=== PATIENT | male | born 1970 | race Caucasian/White ===

== ENCOUNTER 2020-05-03 07:14 | Outpatient (CLI) | payer OTHER, SELFPAY ==
[2020-05-05 16:11] LABS: Basophils Absolute Auto 0.04 K/mm3 (0.00-0.10); Basophils Percent Auto 0.5 % (0.0-1.0); Eosinophils Percent Auto 2.7 % (1.0-6.0); Hematocrit 42.9 % (40.0-54.0); Hemoglobin 13.9 g/dL (14.0-18.0); Immature Granulocyte Absolute 0.02 K/mm3 (0.00-0.00); Immature Granulocyte Percent A 0.3 % (0.0-0.0); Lymphocytes Absolute Auto 1.99 K/mm3 (1.10-4.50); Lymphocytes Percent Auto 27.2 % (18.0-42.0); Mean Corpuscular HGB Conc 32.4 g/dL (32.0-36.0); Mean Corpuscular Volume 95.5 fL (78.0-102.0); Mean Platelet Volume 12.7 fl (8.7-11.0); Monocytes Absolute Auto 0.66 K/mm3 (0.10-0.90); Neutrophils Absolute Auto 4.4 K/mm3 (1.7-7.2); Neutrophils Percent Auto 60.3 % (50.0-70.0); Platelet Count Result 233 K/mm3 (150-420); Red Blood Count 4.49 M/mm3 (4.70-6.10); Red Cell Distribution Width 12.6 % (11.6-14.4); White Blood Count 7.3 K/mm3 (4.8-10.8)
[2020-05-05 16:29] LABS: Alanine Aminotransferase 32 U/L (16-63); Albumin Level 3.8 g/dL (3.4-5.0); Alkaline Phosphatase 63 U/L (46-116); Anion Gap 11.7 mmol/L (7-16); Aspartate Amino Transferase 28 U/L (15-37); Bilirubin,Total 0.4 mg/dL (0.00-1.00); Blood Urea Nitrogen 18 mg/dL (7-18); Calcium 8.4 mg/dL (8.5-10.1); Carbon Dioxide 28 mmol/L (21-32); Chloride 104 mmol/L (98-108); Cholesterol 223 mg/dL (0-200); Estimated Glomerular Filt Rate > 60; Glucose 92 mg/dL (70-99); HDL Direct 42 mg/dL (40-60); LDL Cholesterol Calculated 154 mg/dL (<130); Osmolality Calculated 291 mOsm/kg (285-295); Potassium 3.7 mmol/L (3.5-5.1); Sodium 140 mmol/L (136-145); Thyroid Stimulating Hormone 1.15 uIU/mL (0.36-3.74); Total Protein 6.9 g/dL (6.4-8.2); Triglycerides 136 mg/dL (0-150)
== END 2020-05-03 07:15 | disposition home or self-care (01) ==
LOC: CHSLAB 07:17
PROVIDERS: PCP Nurse Practitioner Family; Visit Provider Nurse Practitioner Family
DX: E11.9 Type 2 diabetes mellitus without complications (principal)
CPT/HCPCS: 36415; 80053; 80061; 83036; 84443; 85025

== ENCOUNTER 2020-07-28 11:11 | Outpatient (CLI) | payer OTHER, SELFPAY ==
[2020-07-28 12:39] LABS: Thyroid Stimulating Hormone Reflex 2.61 u/IU/mL (0.36-3.74)
== END 2020-07-28 11:12 | disposition home or self-care (01) ==
PROVIDERS: PCP Family Medicine; Visit Provider Family Medicine
DX: R11.2 Nausea with vomiting, unspecified (principal); R19.7 Diarrhea, unspecified
CPT/HCPCS: 36415; 84443; 87324

== ENCOUNTER 2020-08-25 07:56 | Outpatient (CLI) | payer OTHER, SELFPAY ==
--- NOTE | 2020-08-25 08:01 | EST_ITS ---
Patient Info Name: Elvis Payne Age: 50 years : 1970 Gender: Male Wt: 298 lbs HR: 80 bpm BP: 120 / 57 mmHg Heart Rhythm: Sinus Rhythm Technical Quality: Excellent Exam Date: 08/25/2020 8:51 AM Exam Location: [facility] Patient Status: Outpatient Admit Date: 08/25/2020 Staff Ordering Physician: Trevin Harden DO Attending Provider: Trevin Harden DO Exercise Technologist: Meghan Gill CRT Exercise Physician: Rita Avila CEP Exam Type: CA stress ronak w NM Study Info Indications ChestPain - A nuclear stress test was performed. History/Risk Factors Hypertension: Yes Dyslipidemia: Yes History/Risk Factors Chest Pain. Summary 1. 1. Negative lexiscan stress test for ischemic ST changes by ECG criteria. 2. 2. Stable hemodynamics throughout the test. 3. 3. Nuclear scan to follow and will be reported separately. Please correlate with it. Protocol: LEXISCAN Stress ECG Details Stage: REST Duration (min): 1 min : 26 sec HR (bpm): 81 SBP (mmHg): 120 DBP (mmHg): 57 Stage: REST Duration (min): 28 min : 42 sec HR (bpm): 82 SBP (mmHg): 120 DBP (mmHg): 57 Stage: STAGE 1 Duration (min): 0 min : 9 sec HR (bpm): 79 SBP (mmHg): 120 DBP (mmHg): 57 Stage: RECOVERY Duration (min): 0 min : 50 sec HR (bpm): 104 SBP (mmHg): 120 DBP (mmHg): 57 Stage: RECOVERY Duration (min): 1 min : 50 sec HR (bpm): 98 SBP (mmHg): 128 DBP (mmHg): 69 Stage: RECOVERY Duration (min): 2 min : 50 sec HR (bpm): 93 SBP (mmHg): 126 DBP (mmHg): 65 Stage: RECOVERY Duration (min): 3 min : 50 sec HR (bpm): 94 SBP (mmHg): 120 DBP (mmHg): 57 Stage: RECOVERY Duration (min): 4 min : 50 sec HR (bpm): 101 SBP (mmHg): 127 DBP (mmHg): 75 Stage: RECOVERY Duration (min): 5 min : 50 sec HR (bpm): 85 SBP (mmHg): 133 DBP (mmHg): 58 Stage: RECOVERY Duration (min): 6 min : 5 sec HR (bpm): 92 SBP (mmHg): 133 DBP (mmHg): 58 Rest HR: 82 bpm Peak HR: 104 bpm Rest Sys BP: 120 mmHg Peak Sys BP: 133 mmHg Max Pred HR: 168 bpm % Max Pred HR: 62 % Target HR: 143 bpm Max RPP: 13,832 bpm*mmHg Termination Reason: Completion of Protocol Cardiac Symptoms: Flushing, Dyspnea Total Time: 0 min : 9 sec Rest [place] BP: 57 mmHg Peak [place] BP: 58 mmHg Total Dose: 0.4 mg Resting ECG Normal sinus rhythm, IVCD, delayed precordial R/S transition. Stress ECG No abnormal ST/T wave changes with exercise. Isolated PVC's. Arrhythmias None. Report Signatures
== END 2020-08-25 07:57 | disposition home or self-care (01) ==
LOC: CHSIMG 07:58
PROVIDERS: PCP Family Medicine; Visit Provider Family Medicine
DX: R07.9 Chest pain, unspecified (principal)
CPT/HCPCS: 78452; 93017; A9502; J2785

== ENCOUNTER 2020-10-06 12:42 | Outpatient (CLI) | payer OTHER, SELFPAY ==
--- NOTE | 2020-10-06 12:52 | ECHO_ITS ---
Patient Info Name: Elvis Payne Age: 50 years : 1970 Gender: Male Ht: 72 in Wt: 300 lbs BSA: 2.69 m2 HR: 75 bpm BP: 146 / 62 mmHg Heart Rhythm: Sinus Rhythm Technical Quality: Good Exam Date: 10/06/2020 12:53 PM Exam Location: [facility] Patient Status: Outpatient Admit Date: 10/06/2020 Staff Ordering Physician: Keanu Glez DO Civil Engineering Professional: Sharif Garcia RDCS Attending Provider: Keanu Glez DO Referring Physician: Newton YOUSSEF; Exam Type: CA echo doppler color flow Study Info Indications R06.00 - Dyspnea, unspecified Complete two-dimensional, color flow and Doppler transthoracic echocardiogram is performed. History/Risk Factors Hypertension: Yes Dyslipidemia: Yes History/Risk Factors Dyspnea. Summary 1. Complete two-dimensional, color flow and Doppler transthoracic echocardiogram is performed. 2. Left ventricular chamber dimension is normal. 3. Left ventricular systolic function is normal, estimated at 60-65%. 4. There is mildly increased left ventricular wall thickness. 5. The left ventricular diastolic function is normal. 6. E/e' 5 is not elevated. 7. No pulmonary hypertension, estimated pulmonary arterial systolic pressure is 31 mmHg. Left Ventricle E/e' 5 is not elevated. Left ventricular chamber dimension is normal. Left ventricular systolic function is normal, estimated at 60-65%. There is mildly increased left ventricular wall thickness. The left ventricular diastolic function is normal. Right Ventricle Right ventricular chamber dimension is normal. Right ventricular systolic function is normal. Left Atria Left atrial chamber dimension is normal. Right Atria Right atrial chamber dimension is normal. Aortic Valve The aortic valve is trileaflet. There is no aortic valve stenosis. There is no aortic valve regurgitation. Pulmonic Valve There is no pulmonic regurgitation. Mitral Valve There is no mitral valve stenosis. There is no mitral valve regurgitation. Tricuspid Valve There is no tricuspid valve regurgitation. No pulmonary hypertension, estimated pulmonary arterial systolic pressure is 31 mmHg. Pericardium/Pleural There is no pericardial effusion. Inferior Vena Cava Normal inferior vena cava with >50% collapse upon inspiration consistent with normal right atrial pressure, 5 mmHg. Aorta The aortic root size at the sinus of Valsalva is normal. Left Ventricular Outflow Tract Name Value Normal LVOT 2D LVOT Diameter 2.4 cm LVOT Doppler LVOT Peak Velocity 124 cm/s LVOT Peak Gradient 6 mmHg LVOT Mean Gradient 3 mmHg LVOT VTI 25 cm LVOT VTI/AV VTI Ratio 0.9 LVOT Stroke Volume 112 ml Mitral Valve Name Value Normal MV Doppler
== END 2020-10-06 12:43 | disposition home or self-care (01) ==
PROVIDERS: PCP Family Medicine; Visit Provider Internal Medicine Cardiovascular Disease
DX: R06.00 Dyspnea, unspecified (principal)
CPT/HCPCS: 93306

== ENCOUNTER 2021-01-02 10:19 | Outpatient (CLI) | payer BC, SELFPAY ==
[2021-01-02 10:32] LABS: Basophils Absolute Auto 0.05 K/mm3 (0.00-0.10); Basophils Percent Auto 0.6 % (0.0-1.0); Eosinophils Absolute Auto 0.19 K/mm3 (0.02-0.50); Eosinophils Percent Auto 2.3 % (1.0-6.0); Hematocrit 44.4 % (40.0-54.0); Hemoglobin 14.9 g/dL (14.0-18.0); Immature Granulocyte Absolute 0.02 K/mm3 (0.00-0.00); Immature Granulocyte Percent A 0.2 % (0.0-0.0); Lymphocytes Absolute Auto 2.45 K/mm3 (1.10-4.50); Mean Corpuscular HGB Conc 33.6 g/dL (32.0-36.0); Mean Corpuscular Hemoglobin 30.3 pg (27.0-31.0); Mean Corpuscular Volume 90.2 fL (78.0-102.0); Mean Platelet Volume 11.3 fl (8.7-11.0); Monocytes Absolute Auto 0.73 K/mm3 (0.10-0.90); Monocytes Percent Auto 8.9 % (2.0-11.0); Neutrophils Absolute Auto 4.7 K/mm3 (1.7-7.2); Platelet Count Result 281 K/mm3 (150-420); Red Blood Count 4.92 M/mm3 (4.70-6.10); Red Cell Distribution Width 12.5 % (11.6-14.4); White Blood Count 8.2 K/mm3 (4.8-10.8)
[2021-01-02 11:52] LABS: Alanine Aminotransferase 38 U/L (16-63); Albumin Level 4.1 g/dL (3.4-5.0); Alkaline Phosphatase 59 U/L (46-116); Anion Gap 8 mmol/L (8-16); Aspartate Amino Transferase 25 U/L (15-37); Bilirubin,Total 0.4 mg/dL (0.00-1.00); Blood Urea Nitrogen 17 mg/dL (7-18); Calcium 9.1 mg/dL (8.5-10.1); Carbon Dioxide 30 mmol/L (21-32); Chloride 101 mmol/L (98-108); Cholesterol 191 mg/dL (0-200); Estimated Glomerular Filt Rate > 60; Free T4 Free Thyroxine 0.94 ng/dL (0.76-1.46); Glucose 101 mg/dL (70-99); HDL Direct 46 mg/dL (40-60); LDL Cholesterol Calculated 123 mg/dL (<130); Osmolality Calculated 289 mOsm/kg (285-295); Sodium 139 mmol/L (136-145); Total Protein 8.4 g/dL (6.4-8.2); Triglycerides 108 mg/dL (0-150); Vitamin B12 332 pg/mL (193-986)
[2021-01-05 10:05] LABS: Vitamin D 25 Hydroxy 12 ng/mL (30-100)
== END 2021-01-02 10:20 | disposition home or self-care (01) ==
LOC: CHSLAB 10:23
PROVIDERS: PCP Nurse Practitioner Family; Visit Provider Nurse Practitioner Family
DX: Z00.00 Encounter for general adult medical examination without abnormal findings (principal); I10 Essential (primary) hypertension; E03.9 Hypothyroidism, unspecified; E78.5 Hyperlipidemia, unspecified; Z98.84 Bariatric surgery status; Z79.899 Other long term (current) drug therapy
CPT/HCPCS: 36415; 80053; 80061; 82306; 82607; 84439; 84443; 85025

== ENCOUNTER 2021-11-09 09:13 | Outpatient (CLI) | payer OTHER, SELFPAY ==
[2021-11-09 10:46] LABS: Alanine Aminotransferase 44 U/L (16-63); Albumin Level 3.9 g/dL (3.4-5.0); Alkaline Phosphatase 71 U/L (46-116); Anion Gap 7 mmol/L (8-16); Aspartate Amino Transferase 32 U/L (15-37); Bilirubin,Total 0.5 mg/dL (0.00-1.00); Blood Urea Nitrogen 15 mg/dL (7-18); Carbon Dioxide 29 mmol/L (21-32); Chloride 103 mmol/L (98-108); Estimated Glomerular Filt Rate > 60; Free T4 Free Thyroxine 0.86 ng/dL (0.76-1.46); Glucose 98 mg/dL (70-99); Osmolality Calculated 288 mOsm/kg (285-295); Potassium 3.9 mmol/L (3.5-5.1); Sodium 139 mmol/L (136-145); Thyroid Stimulating Hormone 1.04 uIU/mL (0.36-3.74); Total Protein 7.2 g/dL (6.4-8.2); Vitamin B12 254 pg/mL (193-986)
[2021-11-12 12:56] LABS: Vitamin D 25 Hydroxy 18 ng/mL (30-100)
== END 2021-11-09 09:14 | disposition home or self-care (01) ==
LOC: CHSLAB 09:15
PROVIDERS: PCP Family Medicine; Visit Provider Nurse Practitioner Family
DX: E03.9 Hypothyroidism, unspecified (principal); R11.2 Nausea with vomiting, unspecified; R19.7 Diarrhea, unspecified; E55.9 Vitamin D deficiency, unspecified; Z79.899 Other long term (current) drug therapy
CPT/HCPCS: 36415; 80053; 82306; 82607; 84439; 84443

== ENCOUNTER 2022-01-04 09:24 | Outpatient (CLI) | payer OTHER, SELFPAY ==
--- NOTE | ~2022-01-04 | XR_ITS ---
XR knee LT 3V 01/04/2022 09:53 Indication: Left knee pain Procedure: 3 views left knee Comparison: No prior studies for comparison. Findings: There is moderate-severe tricompartment osteoarthritis of the left knee. No fracture, sublu xation or dislocation. No significant joint effusion. No foreign bodies. Impression: 1: Moderate-severe osteoarthritis of the left knee. Reviewed, dictated and finalized at location B. ING BABYSITTER Impression: 1: Moderate-severe osteoarthritis of the left knee.
--- NOTE | ~2022-01-04 | XR_ITS ---
XR knee RT 3V 01/04/2022 09:53 Indication: Right knee pain Procedure: 3 views right knee Comparison: No prior studies for comparison. Findings: There is tricompartment osteoarthritis, most advanced in the patellofemoral compartment. No acute fracture or traumatic malalignment. No significant joint effusion. Impression: 1: Moderate tricompartment osteoarthritis of the right knee. Reviewed, dictated and finalized at location B. WRITER MECHANIC Impression: 1: Moderate tricompartment osteoarthritis of the right knee.
== END 2022-01-04 09:25 | disposition home or self-care (01) ==
LOC: CHSIMG 09:27
PROVIDERS: PCP Family Medicine; Visit Provider Nurse Practitioner Family
DX: M25.561 Pain in right knee (principal); M25.562 Pain in left knee
CPT/HCPCS: 73562

== ENCOUNTER 2022-01-16 07:59 | Outpatient (CLI) | payer OTHER, SELFPAY ==
--- NOTE | ~2022-01-16 | MR_ITS ---
EXAMINATION: MR knee LT wo con DATE: 01/16/2022 09:17 INDICATION: Unilateral primary osteoarthritis, unspecified knee. TECHNIQUE: Magnetic resonance imaging (MRI) of the left knee was performed without intravenous contra st. Sequences included axial PD-weighted FS FSE and coronal PD-weighted FSE. The patient was unable t o tolerate further imaging. COMPARISON: Left knee radiographs 01/04/2022 FINDINGS: Medial compartment: There is a tear of the medial meniscus. There is at least deep partial thickness cartilage loss of fe moral condyle involving the central articular surface. There is shallow partial-thickness cartilage l oss of tibial condyle. Osteophytes are noted. Lateral compartment: There is a tear of lateral meniscus. There is deep partial thickness cartilage loss of femoral condyl e and tibial condyle involving the central articular surfaces. Osteophytes are noted. Patellofemoral compartment: There is lateral subluxation of patella. There is full-thickness cartilage loss of patellar median ri dge and lateral facet with mild subchondral edema. There is full-thickness cartilage loss of lateral trochlea with mild subchondral edema. Osteophytes are noted. Ligaments and tendons: The anterior and posterior cruciate ligaments are not well evaluated. Ligament is normal. There are c hanges of prior sprain of fibular collateral ligament characterized increased signal intensity proxim ally. There is mild patellar tendinopathy. Fluid: There is a small knee joint effusion. There is a moderate-sized Esquivel's cyst. There is mild prepatell ar and superficial infrapatellar bursitis. IMPRESSION: 1. The patient ended the exam early, and the small number of sequences decreases sensitivity and spec ificity. 2. Severe chondrosis of patellofemoral compartment and moderate chondrosis of medial and lateral comp artments. 3. Tears of medial and lateral menisci. 4. Small knee joint effusion. 5. Moderate-sized Esquivel's cyst. Reviewed, dictated and finalized at location A. [place] SUPERVISOR IMPRESSION: 1. The patient ended the exam early, and the small number of sequences decrease s sensitivity and specificity. 2. Severe chondrosis of patellofemoral compartment and moderate chondrosis of m edial and lateral compartments. 3. Tears of medial and lateral menisci. 4. Small knee joint effusion. 5. Moderate-sized Esquivel's cyst.
== END 2022-01-16 08:00 | disposition home or self-care (01) ==
LOC: CHSIMG 08:01
PROVIDERS: PCP Nurse Practitioner Family; Visit Provider Nurse Practitioner Family
DX: M17.12 Unilateral primary osteoarthritis, left knee (principal)
CPT/HCPCS: 73721

== ENCOUNTER 2022-09-15 11:09 | Outpatient (CLI) | payer OTHER, SELFPAY ==
[2022-09-15 11:57] LABS: Thyroid Stimulating Hormone Reflex 2.13 u/IU/mL (0.36-3.74)
[2022-09-15 12:05] LABS: Hemoglobin A1C 5.2 % (<5.7)
== END 2022-09-15 11:10 | disposition home or self-care (01) ==
PROVIDERS: PCP Nurse Practitioner Family; Visit Provider Family Medicine
DX: E11.9 Type 2 diabetes mellitus without complications (principal); I10 Essential (primary) hypertension
CPT/HCPCS: 36415; 83036; 84443

== ENCOUNTER 2024-07-13 18:27 | Emergency (ER) | payer OTHER, BC, SELFPAY ==
--- NOTE | ~2024-07-13 | XR_ITS ---
EXAMINATION: XR shoulder RT min 2V DATE: 07/13/2024 18:52 INDICATION: Right shoulder pain. Fall. TECHNIQUE: 4 views of right shoulder were obtained. COMPARISON: None. FINDINGS: Alignment is normal. No fracture. There is mild osteoarthritis of glenohumeral joint and ac romioclavicular joint. IMPRESSION: 1. Mild polyarticular osteoarthritis. Reviewed, dictated and finalized at location A.
[2024-07-13 18:28] VITALS: BP 149/80; PULSE 71; RESP 16; TEMP 36.6; O2SAT 99
--- NOTE | 2024-07-13 18:43 | ED.UPPEXIN ---
HPI - Extremity Injury (Upper) General Chief Complaint: Extremity Injury, Upper Stated Complaint: R ARM INJURY S/P FALL AT WORK Time Seen by Provider: 07/13/24 18:35 Source: patient Mode of arrival: ambulatory Limitations: no limitations History of Present Illness HPI narrative: this is a 54-year-old male who presents to the ED with chief complaint of Right shoulder injury a work today. States that he got caught up on some wires on the ground and fell directly onto his right upper extremity. Reports pain to the shoulder with any range of motion and ROM is very difficult. He denies head injury, LOC, further sites of pain or injury. Denies numbness. Related Data Home Medications Medication Instructions Recorded Confirmed loratadine 10 mg tablet (Allergy 10 mg PO DAILY 03/19/22 07/11/23 Relief (loratadine)) Allergies Allergy/AdvReac Type Severity Reaction Status Date / Time Djeivja-NFC-AvQ Reductase Allergy Severe muscle Verified 07/11/23 09:10 Inhibitor cramps [Lojxwgo-Thd-Gux Reductase Inhibitor] Review of Systems Review of Systems: All systems as dictated in HPI [facility] Past Medical History Medical History Dyslipidemia Generalized anxiety disorder Hypertension Hypothyroidism Severe obesity (BMI >= 40) Sleep apnea Surgical History Surgical History History of weight loss surgery Social History Social History Smoking status: Never smoker Alcohol intake: never Substance use: never Substance use type: does not use Living arrangements: with family Additional living arrangements comments: , has 3 children Occupation/Education: occupation Gender identity (if verbalized by the patient): Male Spiritual care concerns: No Exam Narrative: GENERAL: Well-appearing, well-nourished, and in no acute distress. HEAD: Normocephalic, atraumatic. EYES: PERRLA and EOMI. ENT: Nares clear, no rhinorrhea or epistaxis. Mucous membranes moist. Oropharynx without tonsillar hypertrophy exudate or other lesions. NECK: Supple. No adenopathy or masses. CHEST: No respiratory distress. Clear to auscultation. No wheezes rales or rhonchi HEART: Regular rate and rhythm. No murmur heard. Normal peripheral pulses. ABDOMEN: Soft, nontender, nondistended, normal active bowel sounds. MSK: RUE: Difficulty with any range of motion of the right shoulder. Minimal tenderness throughout the shoulder. No deformity. Neurovascularly intact distally. LUE: Benign SKIN: Warm, dry, no rash. NEURO: Alert and oriented x4. No focal deficits. PSYCH: Normal mood and affect. Course Vital Signs Vital signs: Vital Signs Temperature 98 F 07/13/24 18:28 Pulse Rate 71 07/13/24 18:28 Respiratory Rate 16 07/13/24 18:28 Blood Pressure 149/80 H 07/13/24 18:28 Pulse Oximetry 99 07/13/24 18:28 Oxygen Delivery Room Air 07/13/24 18:28 Temperature 98 F 07/13/24 18:28 Pulse Rate 71 07/13/24 18:28 Respiratory Rate 16 07/13/24 18:28 Blood Pressure 149/80 H 07/13/24 18:28 Pulse Oximetry 99 07/13/24 18:28 Oxygen Delivery Room Air 07/13/24 18:28 MDM - Extremity Injury (Upper) MDM Narrative Medical decision making narrative: 54-year-old male who presents to the ED with chief complaint of right shoulder injury at work today. He fell directly onto the right shoulder. X-rays are negative for fracture. Vitals are normal. Exam shows difficulty with range of motion, most likely consistent with rotator cuff strain versus tear. He was given a sling and discharged in stable condition with return precautions given Discharge Plan Discharge Clinical Impression: Right shoulder strain Patient Disposition: Home, Self-Care Condition: Stable Instructions: Antibiotic Form Additio
[2024-07-13] MEDS: ACETAMINOPHEN 500 MG TABLET 1000 MG PO (18:46)
== END 2024-07-13 19:33 | disposition home or self-care (01) ==
LOC: ANHED 19:26
PROVIDERS: Emergency Provider Physician Assistant; PCP Nurse Practitioner Family
DX: S46.911A Strain of unspecified muscle, fascia and tendon at shoulder and upper arm level, right arm, initial encounter (principal); E78.5 Hyperlipidemia, unspecified; I10 Essential (primary) hypertension; E03.9 Hypothyroidism, unspecified; G47.30 Sleep apnea, unspecified; Z79.85 Long-term (current) use of injectable non-insulin antidiabetic drugs; Z79.899 Other long term (current) drug therapy; W18.09XA Striking against other object with subsequent fall, initial encounter
CPT/HCPCS: 73030; 99283; A4565; A9270

== ENCOUNTER 2024-11-29 08:47 | Outpatient (CLI) | payer OTHER, SELFPAY ==
--- NOTE | ~2024-11-29 | XR_ITS ---
XR chest 2V Ordering provider: Jina Abraham NP History: 54 years Male with . PRE OP SHOULDER SURGERY,HTN,SLEEP APNEA . Comparison: April 15, 2015 FINDINGS: MEDIASTINUM: The cardiac silhouette is not enlarged. LUNGS: No infiltrates, effusions or pneumothorax. OTHER: No free air under the diaphragm. IMPRESSION: No acute cardiopulmonary pathology. Reviewed, dictated and finalized at location A. RAPHIC INFORMATION SYSTEM ANALYST
--- NOTE | 2024-11-29 08:52 | ECG_ITS ---
Test Date: 2024-11-29 09:09:25 Measurements Intervals [place] Rate: 87 P: 71 CA: 174 QRS: 40 QRSD: 111 T: 66 QT: 360 QTc: 435 Interpretive Statements SINUS RHYTHM MODERATE INTRAVENTRICULAR CONDUCTION DELAY [110+ ms QRS DURATION] No previous ECG available for comparison Electronically Signed On 11-29-2024 09:24:40 GETTERING FILAMENT MACHINE OPERATOR by Tremayne Smith M.D.
[2024-11-29 12:21] LABS: Basophils Absolute Auto 0.05 K/mm3 (0.00-0.10); Basophils Percent Auto 0.6 % (0.0-1.0); Eosinophils Absolute Auto 0.15 K/mm3 (0.02-0.50); Eosinophils Percent Auto 1.9 % (1.0-6.0); Hematocrit 38.2 % (40.0-54.0); Hemoglobin 12.9 g/dL (14.0-18.0); Immature Granulocyte Absolute 0.02 K/mm3 (0.00-0.00); Immature Granulocyte Percent A 0.2 % (0.0-0.0); Lymphocytes Absolute Auto 2.48 K/mm3 (1.10-4.50); Lymphocytes Percent Auto 30.9 % (18.0-42.0); Mean Corpuscular HGB Conc 33.8 g/dL (32-36); Mean Corpuscular Hemoglobin 29.9 pg (27.0-31.0); Mean Corpuscular Volume 88.4 fL (78.0-102.0); Mean Platelet Volume 11.1 fl (8.7-11.0); Monocytes Absolute Auto 0.61 K/mm3 (0.10-0.90); Monocytes Percent Auto 7.6 % (2.0-11.0); Neutrophils Absolute Auto 4.71 K/mm3 (1.70-7.20); Neutrophils Percent Auto 58.8 % (50.0-70.0); Platelet Count Result 341 K/mm3 (150-420); Red Blood Count 4.32 M/mm3 (4.70-6.10); Red Cell Distribution Width 11.9 % (11.6-14.4)
[2024-11-29 12:26] LABS: Add Urine Microscopic? NO; Appearance Urine Clear (Clear); Bilirubin Urine Negative (Negative); Blood Urine Negative (Negative); Color Urine Yellow (Yellow); Glucose Urine UA Negative (Negative); Ketones Urine Negative (Negative); Leukocyte Esterase Ur Negative LEU/UL (Negative); Nitrate Urine Negative (Negative); Protein Urine Negative (Negative); Specific Grav Ur 1.015 (1.010-1.020); Urobilinogen Urine 0.2 mg/dL (0.2-1.0); pH Urine 7.5 (5.0-8.0)
[2024-11-29 12:32] LABS: Hemoglobin A1C 5.3 % (<5.7)
[2024-11-29 12:36] LABS: INR 0.9; Prothrombin Time 10.4 Seconds (9.50-12.1)
[2024-11-29 13:00] LABS: Alanine Aminotransferase 21 U/L (16-63); Albumin Level 3.8 g/dL (3.4-5.0); Alkaline Phosphatase 72 U/L (46-116); Anion Gap 10 mmol/L (4-12); Aspartate Amino Transferase 20 U/L (15-37); Bilirubin,Total 0.4 mg/dL (0.00-1.00); Blood Urea Nitrogen 14 mg/dL (7-18); Calcium 9.3 mg/dL (8.5-10.1); Carbon Dioxide 31 mmol/L (21-32); Chloride 102 mmol/L (98-108); Estimated Glomerular Filt Rate > 60; Glucose 100 mg/dL (70-99); Osmolality Calculated 296 mOsm/kg (285-295); Potassium 3.4 mmol/L (3.5-5.1); Sodium 143 mmol/L (136-145); Total Protein 7.2 g/dL (6.4-8.2)
== END 2024-11-29 08:48 | disposition home or self-care (01) ==
PROVIDERS: Nurse Practitioner Family; PCP Family Medicine; Visit Provider Family Medicine
DX: Z01.818 Encounter for other preprocedural examination (principal); I10 Essential (primary) hypertension; R79.9 Abnormal finding of blood chemistry, unspecified; E03.9 Hypothyroidism, unspecified; E66.01 Morbid (severe) obesity due to excess calories; E56.9 Vitamin deficiency, unspecified
CPT/HCPCS: 36415; 71046; 80053; 81003; 83036; 85025; 85610; 93005